=== PATIENT | male | born 1950 | race Caucasian/White ===

== ENCOUNTER 2016-12-08 13:19 | Emergency (ER) | payer OTHER, MEDICARE ==
[~2016-12-08] VITALS: Ht 177.8 cm; Wt 118.2 kg
[~2016-12-08 13:19] MED LIST: ALLO300T2 PO; AMLO5TAB2 PO; ASPI-973 PO; CLOP75TA28 PO; LIP40 PO; METO25TA6 PO; MV-M1CAP15 PO; NITR0.4T SL
[2016-12-08 13:32] VITALS: BP 124/85; PULSE 65; RESP 10; O2SAT 98
[2016-12-08 14:06] LABS: BASOPHILS % (AUTO) 0.5 % (0-3); EOSINOPHILS % (AUTO) 6.5 % (0-5); MONOCYTES % (AUTO) 7.3 % (4-12); Mean Corpuscular Hemoglobin 28.7 pg (27.0-35.0); Mean Corpuscular Volume 85.7 fL (81-100); NEUTROPHILS % (AUTO) 57.4 % (40-74); Platelet Count 307 bil/L (150-400)
--- NOTE | 2016-12-08 14:27 | DRSVH ---
PROCEDURE: X-RAY CHEST ONE VIEW, PORTABLE ([id number]) INDICATIONS: CHEST PAIN TECHNIQUE: One view of the chest was acquired. COMPARISON: [facility], CR, XR CHEST 1VW (PORTABLE), 01/05/2016, 13:52. FINDINGS: Surgical changes and devices: None. Lungs and pleura: No pleural effusions or pneumothorax. Lungs are clear. Mediastinum: Mediastinal contours appear normal. Heart size is normal. Bones and chest wall: No suspicious bony lesions. Overlying soft tissues appear unremarkable. IMPRESSION: No acute cardiopulmonary disease. Dictated by: Ray Weeks M.D. on 12/08/2016 at 14:25 Approved by: Ray Weeks M.D. on 12/08/2016 at 14:26
[2016-12-08 14:31] LABS: TROPONIN T 0.019 ug/L (0.0-0.011)
--- NOTE | 2016-12-08 14:32 | ED.REPORT ---
HPI-Chest Pain 40 and Over Date of Service Dec 08, 2016 ED Provider: Jame Mina DO 66-year-old male with past medical history of CVA and PR was seen in the urgent care today for numbness and tingling of the left arm and leg. He states that his symptoms began after chest pain that he experienced over the weekend and have been consistent since then. For this reason he presented to the urgent care today and was seen by a doctor who is concerned for repeat stroke due to the experienced numbness and tingling combined with slight ataxia when touching [id number]. The patient states that he typically has chest pain, which comes and goes. Has been seen in the emergency department and admitted to the hospital on 2 previous occasions in which she was told that there was no cardiac involvement for his chest pain. He states that today's symptoms are similar to those episodes apart from the numbness and tingling that he currently experiences in the left arm and leg. He is not currently experiencing chest pain, shortness of breath, nausea, vomiting, fever or chills. Nursing Notes Stated Complaint: MADAY LEFT ARM/LEG Chief Complaint: Chest Pain Allergies: Coded Allergies: allopurinol (Verified Allergy, Intermediate, Rash, 08/19/15) States reaction only to a brand patient took in the Scheduled Allopurinol (Allopurinol) 300 Mg Tablet 300 MG PO QAM Amlodipine (Amlodipine) 5 Mg Tablet 5 MG PO DAILY Aspirin (Aspirin) 81 Mg Tablet 81 MG PO DAILY Atorvastatin (Lipitor) 40 Mg Tablet 40 MG PO HS Clopidogrel (Clopidogrel) 75 Mg Tablet 75 MG PO DAILY Metoprolol Tartrate (Metoprolol Tartrate) 25 Mg Tablet 12.5 MG PO BID Scheduled PRN Nitroglycerin SL (Nitrostat) 0.4 Mg Tablet 0.4 MG SL Q5MIN PRN PRN For Chest Pain Miscellaneous Medications Mv-Mn/FA/Vit K/Lycop/Lut/Coq10 (Daily Multivitamin Capsule) 200-100MCG Capsule 1 EACH PO General Time Seen by MD: 14:00 Chief Complaint Other (numbness and tingling in the left extremities) Hx Obtained From: Patient Sudden in Onset?: Yes Onset Occurred: 4 days ago Symptom Duration: Since onset Severity: Current: No pain currently Associated with: Reports: Numbness/Tingling, Denies: Cough, non-productive, Dizziness, Fatigue, Fever, Nausea, Recent viral symptoms, Vomiting Past Medical History Past Medical History Notes: NM MYOCARD PERF SPECT SINGLE 2011 IMPRESSION: Normal nuclear cardiac stress study. a. Normal exercise capacity without chest pain or EKG changes of ischemia. b. Normal sized left ventricle and left ventricular contractility. c. Normal stress myocardial perfusion imaging with no evidence of ischemia or scar. Dictated by: Irving Hooper M.D. on 12/04/2011 at 11:32 Transcribed by: CHEPE on 12/04/2011 at 13:02 Approved by: Irving Hooper M.D. on 12/09/2011 at 14:23 Past Medical History Gout internal carotid artery stenosis arthritis kidney stones PR 04/26 NSTEMI cardiac cath showed no sig CAD. Normal echo 08/25 Reports: Hyperlipidemia, Hypertension, Stroke Past Surgical History Heart cath Smoking History Never Smoker Social History Alcohol Use: "Social" Other Social History: Good social support, , Local resident Ambulatory Status Independent Review of Systems Complete sys rev & neg: except as marked. Physical Exam Physical Exam Notes: NIH stroke scale 1 - for slight ataxia on [id number]. Initial Vital Signs Vital Signs (First) Date Time Temp Pulse Resp B/P Pulse Ox O2 Delivery O2 Flow Rate FiO2 12/08/16 13:32 36.7 65 10 124/85 98 Room Air Initial VS: Reviewed Head / Eyes: Atraumatic, Normocephalic, PERRL ENT: Mucous membranes moist, Conjunctiva normal, No scleral icterus Neck: Supple, Non-tender, Full range of motion Extremities: Vascular intact, Neuro intact, No swelling, No tenderness Skin: Warm, Dry, No cyanosis Neurologic: Alert, Oriented, Nonfocal Psychiatric: Mood/affect normal, Behavior normal, Normal thought content General/Constitutional: Awake, Alert, No acute distress, Cooperative, Not toxic appearing Lower Extremity / Pelvis / MS: Full range of motion, Neurologic intact, No edema Head / Eyes: PERRL, EOMI, No nystagmus, Conjunctiva NL Upper Extremity / MS: Full range of motion, Neurologic intact, No edema Interpretation & Diagnostics Lab Results Interpretation Result Diagram: 12/08/16 1350 12/08/16 1350 Test 12/08/16 13:10 12/08/16 13:50 Hold Zabala Top Tube Received (Received) White Blood Count 7.8th/mm3 (3.8-10.1) Red Blood Count 4.49mil/mm3 (4.40-5.80) Hemoglobin 12.9g/dL (13.8-17.2) Hematocrit 38.5% (41.0-50.0) Mean Corpuscular Volume 85.7fL (81-100) Mean Corpuscular Hemoglobin 28.7pg (27.0-35.0) Mean Corpuscular Hemoglobin Concent 33.5% (32.0-37.0) Red Cell Distribution Width 13.8% (12.3-15.4) Platelet Count 307bil/L (150-400) Neutrophils (%) (Auto) 57.4% (40-74) Lymphocytes (%) (Auto) 27.8% (14-46) Monocytes (%) (Auto) 7.3% (4-12) Eosinophils (%) (Auto) 6.5% (0-5) Basophils (%) (Auto) 0.5% (0-3) Sodium Level 138mEq/L (134-144) Potassium Level 4.6mEq/L (3.5-5.2) Chloride Level 101mEq/L (97-108) Carbon Dioxide Level 23mmol/L (18-29) Blood Urea Nitrogen 25mg/dL (8-27) Creatinine 1.22mg/dL (0.76-1.27) Estimat Glomerular Filtration Rate 63mL/min (>59) Glucose Level 109mg/dL (60-99) Calcium Level 10.2mg/dL (8.5-10.1) Magnesium Level 2.0mg/dL (1.6-2.6) Total Bilirubin 0.6mg/dL (0.0-1.2) Aspartate Amino Transf (AST/SGOT) 20U/L (0-50) Alanine Aminotransferase (ALT/SGPT) 16U/L (0-44) Alkaline Phosphatase 100U/L (25-160) Troponin T 0.019ug/L (0.0-0.011) Total Protein 7.4g/dL (6.4-8.4) Albumin 4.5g/dL (3.4-5.0) Re-Eval/Medical Decision Med Decision/Clinical Course Patient sent from your care today on concern for possible stroke symptoms. For this reason, CT scan of the head was ordered to rule out possible stroke pathology, although this seems unlikely. I believe that the ataxia is residual from his previous CVA. Work up for heart pathology due to his history of PR and unexplained numbness and tingling. Reveals slightly elevated troponin. Discharge & Departure Primary Impression: Elevated troponin Referrals: Yoel Ramon MD (PCP) Attending Statement The patient was seen and examined together with Dr. Franks on 12/08/16 and I have added additional information to the note above. Daniel Palmer DO Dec 08, 2016 14:32 Jame Mina DO Dec 08, 2016 15:30
--- NOTE | 2016-12-08 15:18 | DRSVH ---
PROCEDURE: CT BRAIN WITHOUT CONTRAST ([id number]) INDICATIONS: parasthesias left arm and leg TECHNIQUE: Noncontrast 4.5 mm thick angled axial sections acquired from the foramen magnum to the vertex, with c oronal reformats. COMPARISON: [facility], CT, BRAIN (TPA), 05/06/2013, 7:43. [facility], CT, BRAIN W/O CONTRAST, 05/06/2013, 12:16. [facility], CT, CT BRAIN WO CON, 01/05/2016, 14:54 . FINDINGS: Image quality: Excellent. CSF spaces: Basal cisterns are patent. No extra-axial fluid collections. Ventricles are normal in size and shape. Brain: No midline shift. No intracranial masses or hemorrhage. Rodriguez-white matter interface is norm al. Skull and face: Calvarium and visualized facial bones are intact, without suspicious lesions. Sinuses: Visualized sinuses and mastoids are clear. IMPRESSION: No acute intracranial disease process. Dictated by: Lizbeth Chen MD, PhD on 12/08/2016 at 15:14 Approved by: Lizbeth Chen MD, PhD on 12/08/2016 at 15:16
--- NOTE | 2016-12-08 17:30 | DRSVH ---
PROCEDURE: MRI STROKE PROTOCOL ([id number]) Pre- and post-contrast brain MRI, non-contrast brain MR angiogram, pre- and postcontrast neck MR betsey ogram INDICATIONS: L arm and L leg numbness TECHNIQUE: Brain: Noncontrast axial T1 spin echo, axial T2 fast spin echo, sagittal and axial FLAIR, coronal T2 fast spin echo, axial gradient echo, axial diffusion and ADC through the brain. After the administr ation of contrast, axial 3D VIBE of the cranial vasculature and brain. Brain MRA: Non-contrast 3-D time of flight MR angiogram, with multiple uxsqoyc-kzrvulghg-gsnzwxcrzm (MIP) reformats performed. Neck MRA: Axial and sagittal TruFISP through the neck. Coronal dynamic MR angiogram during administ ration of contrast in the arterial and venous phases, with 3-dimenstional vmqgcaj-sfxbagwrs-hebbhzhhd n (MIP) reformats constructed from subtraction images. COMPARISON: [facility], CT, CT BRAIN WO CON, 12/08/2016, 14:55. [facility], MR, STROKE PROTOCOL (PN), 05/07/2013, 10:26. FINDINGS: Image quality: Excellent. BRAIN: The ventricular system and cortical sulci demonstrate atrophy, consistent for the patient's stated ag e. There are areas of increased T2/FLAIR signal intensity within the periventricular and subcortical white matter. There is no acute intra-or extra axial fluid collection. No acute hemorrhage, mass les ion or midline shift. Brainstem is unremarkable. There are no areas of restricted diffusion. Globes a re symmetrical. Sinuses demonstrate minimal ethmoid and maxillary sinus mucosal thickening. Osseous s tructures are intact. BRAIN MR ANGIOGRAM: The posterior circulation demonstrates a right vertebral artery dominance. There is approximate 50% n arrowing within the distal aspect of the left vertebral artery. Basilar artery and posterior cerebral arteries demonstrate no areas of hemodynamically significant stenosis, vascular occlusion or aneurys mal dilation. Posterior communicating arteries are within normal limits. The anterior circulation, including the anterior and middle cerebral arteries, as well as the interna l carotid arteries demonstrates no areas of hemodynamically significant stenosis, vascular occlusion or aneurysmal dilation. NECK MR ANGIOGRAM: The origins of the left and right common, internal and external carotid arteries demonstrate no areas of hemodynamically significant stenosis, vascular occlusion or aneurysmal dilation. Origins of the l eft and right vertebral arteries demonstrate no areas of hemodynamically significant stenosis, vascul ar occlusion or aneurysmal dilation. Aortic arch demonstrates conventional anatomy. Limited, visualiz ed portions subclavian vasculature are unremarkable. IMPRESSION: 1. No acute intracranial process. No visualized acute ischemia. 2. Mild atrophy and chronic microvascular ischemic changes. 3. No areas of hemodynamically significant stenosis, vascular occlusion or aneurysmal dilation withi n the anterior circulation. 4. Approximate 50% narrowing within the distal aspect of the left vertebral artery. 5. No areas of hemodynamically significant stenosis, vascular occlusion or aneurysmal dilation within the neck vasculature. The estimate of stenosis included in the report of the imaging study was calculated using the NASCET method Dictated by: Anabella Morales M.D. on 12/08/2016 at 17:23 Approved by: Anabella Morales M.D. on 12/08/2016 at 17:28
[2016-12-08 18:06] VITALS: BP 131/59; PULSE 60; RESP 16; O2SAT 96
[2016-12-08 18:51] VITALS: BP 132/83; PULSE 72; RESP 16; O2SAT 97
== END 2016-12-08 18:52 ==
LOC: SED 13:19
DX: R77.8 Other specified abnormalities of plasma proteins (principal); R20.0 Anesthesia of skin; R07.9 Chest pain, unspecified; I11.9 Hypertensive heart disease without heart failure; I25.2 Old myocardial infarction; E78.5 Hyperlipidemia, unspecified; Z86.73 Personal history of transient ischemic attack (TIA), and cerebral infarction without residual deficits; Z88.8 Allergy status to other drugs, medicaments and biological substances; Z79.82 Long term (current) use of aspirin
CPT/HCPCS: 36415; 70450; 70549; 70553; 71010; 80053; 83735; 84484; 85025; 93005; 96374; 99285; A9585; J2060